=== PATIENT | female | born 1935 | race Caucasian/White ===

== ENCOUNTER → 2017-09-25 | Emergency (ER) | payer MEDICARE, OTHER ==
[~2017-09-25] VITALS: Ht 162.6 cm; Wt 89.4 kg
[~2017-09-25] MED LIST: ACETAMINOPHEN-1 EAC1 PO; ACETAMINOPHEN500 MG PO; AMLODIPINE BESY10 MG PO; ASPIRIN EC81 MG PO; BETAMETHASONE D60 ML TOP; COLACE100 MG PO; DIAZEPAM10 MG PO; DIAZEPAM5 MG PO; FOSAMAX70 MG PO; HYDROXYZINE HCL25 MG PO; HYDROXYZINE PAM25 MG PO; LISINOPRIL10 MG PO; LOSARTAN POTASS25 MG PO; LOVENOX120 MG SUB-Q; NEXIUM20 MG PO; NORCO 5-325 TA1 EACH PO; PREDNISONE20 MG PO; VICODIN 5-3001 EACH PO; WARFARIN SODIUM5 MG PO; ZYRTEC10 MG PO
== END ==
LOC: ED 14:32
DX: L29.9 Pruritus, unspecified (principal)
CPT/HCPCS: 99282

== ENCOUNTER 2017-10-18 11:44 | Emergency (ER) | payer MEDICARE, OTHER ==
[~2017-10-18] VITALS: Ht 162.6 cm; Wt 89.4 kg
[~2017-10-18 11:44] MED LIST changes: -BETAMETHASONE D60 ML TOP; -HYDROXYZINE HCL25 MG PO; -ZYRTEC10 MG PO
--- OUTSIDE RECORDS SUMMARY | 2017-10-18 14:57 | XMS | Clinical Summary ---
Demographics + + + | Address | [address] | | | [place] [address] | + + + | Home Phone | | + + + | Preferred Language | Unknown | + + + | Marital Status | Unknown | + + + | Jehovah'S Witness Affiliation | Unknown | + + + | Race | Unknown | + + + | Ethnic Group | Unknown | + + + Author + + + | Author | [facility] | + + + | Organization | [facility] | + + + | Address | Unknown | + + + | Phone | Unavailable | + + + Support + + +---------+ + | Name | Relationship | Address | Phone | + + +---------+ + | Cheikh Yates II | ECON | Unknown | | + + +---------+ + | Altagracia Yates | ECON | Unknown | | + + +---------+ + Care Team Providers + +------+ + | Care Supervisor Cab Name | Role | Phone | + +------+ + | Ramsey Cardoso DO | PP | | + +------+ + Allergies No Known Allergies Current Medications + + +-------+---------+------+------+-------+ | Prescription | Sig. | Disp. | Refills | Star | End | Statu | | | | | | t | Date | s | | | | | | Date | | | + + +-------+---------+------+------+-------+ | diazepam (VALIUM) | Take 5 mg by mouth | | | | | Activ | | 10 MG tablet | nightly as needed | | | | | e | | | for Anxiety. | | | | | | + + +-------+---------+------+------+-------+ | lisinopril | Take 10 mg by mouth | | | | | Activ | | (ZESTRIL) 10 MG | daily. | | | | | e | | tablet | | | | | | | + + +-------+---------+------+------+-------+ | UNABLE TO FIND | Take 2 capsules by | | | | | Activ | | | mouth 2 (two) times | | | | | e | | | daily as needed. | | | | | | | | NEUROPATHY - VITAMIN | | | | | | | | B1 &B12 R-ALPHA | | | | | | | | LIPOIC ACID | | | | | | + + +-------+---------+------+------+-------+ | warfarin | Take 5 mg by mouth | | | | | Activ | | (COUMADIN) 5 MG | daily. | | | | | e | | tablet | | | | | | | + + +-------+---------+------+------+-------+ | amLODIPine | Take 10 mg by mouth | | | | | Activ | | (NORVASC) 10 MG | daily. | | | | | e | | tablet | | | | | | | + + +-------+---------+------+------+-------+ | esomeprazole | Take 40 mg by mouth | | | | | Activ | | (NEXIUM) 40 MG | every morning before | | | | | e | | capsule | breakfast. | | | | | | + + +-------+---------+------+------+-------+ Active Problems +---------+ + | Problem | Noted Date | +---------+ + | Dyspnea | 11/18/2014 | +---------+ + + + | Last Assessment & Plan: Chronic dyspnea with h/o multiple PE, | | COPD, ex smokerOn anticoagulationO2 sat when in office sitting | | down is 88%Hypoxemia secondary to ?COPD VS CTEPH VS PHTN VS CHF | | Will do echo to evaluate LV function, WMA, valves, PHTN Will do | | baseline VQ scan to evaluate for CTEPHWill do 6 minute walk | | testPFTsWill refer to Pulmonary for further evaluation for need | | for Home O2.Follow up after tests. | |PFTs | |Will refer to Pulmonary for further evaluation for need for Home O2. | |Follow up after tests. | + + + + + | Preop cardiovascular exam | 11/18/2014 | + + + + + | Last Assessment & Plan: 79 yr old female with h/o HTN, HLD, | | ex smoker, Recurrent PE on coumadinChronic dyspnea from multiple | | reasons- possible from COPD, PHTN, CTEPH, obesityPoor functional | | capacity from obesity, back pain, dyspneaHypoxemia secondary to | | ?COPD VS CTEPH VS PHTN VS CHF Will do 2D echo to evaluate LV | | funciton, WMA, valves, PHTNStress MPI to screen for CADWill refer | | to pulmonary for Hypoxemia- home O2- PHTN evaluationFollow up | | after tests. | + + + +---+ | Hypertension | | + +---+ Family History + + +------+ + | Medical History | Relation | Name | Comments | + + +------+ + | Heart attack | Father | | | + + +------+ + | Other (see comments) | Mother | | BLOOD CLOTS | + + +------+ + + +------+ + + | Relation | Name | Status | Comments | + +------+ + + | Brother | | | | + +------+ + + | Father | | | | | | | (Age | | | | | 77) | | + +------+ + + | Mother | | | | + +------+ + + Social History + +-------+ +--------+ + | Tobacco Use | Types | Packs/Day | Years | Date | | | | | Used | | + +-------+ +--------+ + | Former Smoker | | | 20 | Quit: 11/15/1980 | + +-------+ +--------+ + + +---+---+---+ | Smokeless Tobacco: | | | | | Never Used | | | | + +---+---+---+ + + +---------+ + | Alcohol Use | Drinks/We | oz/Week | Comments | | | ek | | | + + +---------+ + | No | | | | + + +---------+ + + + + | Sex Assigned at | Date Recorded | | | | + + + | Not on file | | + + + Last Filed Vital Signs + + + + | Vital Sign | Reading | Time Taken | + + + + | Blood Pressure | 128/60 | 11/18/2014 9:52 AM PDT | + + + + | Pulse | 73 | 11/18/2014 9:52 AM PDT | + + + + | Temperature | - | - | + + + + | Respiratory Rate | 18 | 11/18/2014 9:52 AM PDT | + + + + | Oxygen Saturation | 88% | 11/18/2014 9:52 AM PDT | + + + + | Inhaled Oxygen | - | - | | Concentration | | | + + + + | Weight | 92.1 kg (203 lb) | 11/18/2014 9:52 AM PDT | + + + + | Height | 162.6 cm (5' 4") | 11/18/2014 9:52 AM PDT | + + + + | Body Mass Index | 34.84 | 11/18/2014 9:52 AM PDT | + + + + Plan of Treatment + + + + + | Health Maintenance | Due Date | Last Done | Comments | + + + + + | Vaccine: | | | | | Dtap/Tdap/Td (1 - | 4 | | | | Tdap) | | | | + + + + + | DEXA SCAN SCREENING | | | | | | 0 | | | + + + + + | Vaccine: | | | | | Pneumococcal 65+ | 0 | | | | Low/Medium Risk (1 | | | | | of 2 - PCV13) | | | | + + + + + | Vaccine: Influenza | | | | | (Season Ended) | 8 | | | + + + + + Results Not on filefrom Last 3 Months Insurance + +--------+ +------+-------+ + | Payer | Benefi | Subscriber | Type | Phone | Address | | | t Plan | ID | | | | | | / | | | | | | | Group | | | | | + +--------+ +------+-------+ + | MEDICARE | MEDICA | xxxxxxxxxx | | | [address] | | | RE | | | | [place] [address] | | | IP-OP | | | | | + +--------+ +------+-------+ + | UNITED HEALTHCARE | UNITED | xxxxxxxx | | | | | | | | | | | | | HEALTH | | | | | | | CARE | | | | | | | GENERI | | | | | | | C | | | | | + +--------+ +------+-------+ + + +--------+ +--------+ + + | Guarantor Name | Accoun | Relation to | Date | Phone | Billing Address | | | t Type | Patient | of | | | | | | | | | | + +--------+ +--------+ + + | KAREN TREJO | Person | Self [birth year] Home: | [address] | | | al/Fam | | 1935 | [phone] [place] | | | [place] | | | [phone] | [phone] | + +--------+ +--------+ + +
--- OUTSIDE RECORDS SUMMARY | 2017-10-18 14:57 | XMS | Clinical Summary ---
Demographics + + + | Address | [address] | | | [place] [address] | + + + | Home Phone | | + + + | Preferred Language | Unknown | + + + | Marital Status | Unknown | + + + | Orthodoxy Affiliation | 1009 | + + + | Race | Unknown | + + + | Ethnic Group | Unknown | + + + Author + + + | Author | [facility] | | | and [place] | + + + | Organization | [facility] | | | and [place] | + + + | Address | Unknown | + + + | Phone | Unavailable | + + + Support + + +---------+ + | Name | Relationship | Address | Phone | + + +---------+ + | Kelsey Ramos | ECON | Unknown | | + + +---------+ + | Cheikh Hernandez | ECON | Unknown | | + + +---------+ + | Justino Hernandez | ECON | Unknown | | + + +---------+ + Care Team Providers + +------+ + | Care Merchandise Execution Leader Name | Role | Phone | + [...] | | | | Activ | | (PRINIVIL, ZESTRIL) | Daily. | | | | | e | | 10 mg tablet | | | | | | | + + +-------+---------+------+------+-------+ | amlodipine | Take 10 mg by mouth | | | | | Activ | | (NORVASC) 10 MG | Daily. | | | | | e | | tablet | | | | | | | + + +-------+---------+------+------+-------+ | esomeprazole | Take 40 mg by mouth | | | | | Activ | | (NEXIUM) 40 mg | every morning | | | | | e | | capsule | (before breakfast). | | | | | | + + +-------+---------+------+------+-------+ | warfarin | Take 5 mg by mouth | | | | | Activ | | (COUMADIN) 5 mg | Daily. Mondays and | | | | | e | | tablet | fridays only half a | | | | | | | | pill | | | | | | + + +-------+---------+------+------+-------+ | diazepam (VALIUM) | Take 5 mg by mouth | | | | | Activ | | 5 mg tablet | every 6 hours as | | | | | e | | | needed. | | | | | | + + +-------+---------+------+------+-------+ | acetaminophen | Take 500 mg by mouth | | | | | Activ | | (TYLENOL) 500 mg | every 6 hours as | | | | | e | | tablet | needed. | | | | | | + + +-------+---------+------+------+-------+ | UNABLE TO FIND | Med Name: Neuropathy | | | | | Activ | | | supplement | | | | | e | + + +-------+---------+------+------+-------+ Active Problems + + + | Problem | Noted Date | + + + | Chronic low back pain | 05/05/2014 | + + + | DDD (degenerative disc disease), lumbar-Multilevel especially at | 05/05/2014 | | L4-L5,L5-S1 | | + + + | Facet arthritis of lumbar region (HCC) | 05/05/2014 | + + + | Foraminal stenosis of lumbar [id number]-M7-V9 bilaterally | 05/05/2014 | + + + Family History + + +------+ + | Medical History | Relation | Name | Comments | + + +------+ + | Heart defect | Father | | | + + +------+ + | Heart defect | Mother | | Blood clot in heart. | + + +------+ + | Cancer | Sister | | | + + +------+ + + +------+ + + | Relation | Name | Status | Comments | + +------+ + + | Brother | | | | | | | (Age | | | | | 78) | | + +------+ + + | Father | | | | | | | (Age | | | | | 77) | | + +------+ + + | Mother | | | | | | | (Age | | | | | 68) | | + +------+ + + | Sister | | | stomach cancer | | | | (Age | | | | | 81) | | + +------+ + + | Sister | | | | + +------+ + + Social History + + + +--------+ + | Tobacco Use | Types | Packs/Day | Years | Date | | | | | Used | | + + + +--------+ + | Former Smoker | Cigarettes | 1 | 25 | Started: 07/01/1979 | + + + +--------+ + + + +---------+ + | Alcohol Use | Drinks/We | oz/Week | Comments | | | ek | | | + + +---------+ + | Yes | | | Socially | + + +---------+ + + + + | Sex Assigned at | Date Recorded | | | | + + + | Not on file | | + + + Last Filed Vital Signs + + + + | Vital Sign | Reading | Time Taken | + + + + | Blood Pressure | 171/69 | 06/02/2014 1300 PST | + + + + | Pulse | 78 | 06/02/2014 1300 PST | + + + + | Temperature | - | - | + + + + | Respiratory Rate | - | - | + + + + | Oxygen Saturation | - | - | + + + + | Inhaled Oxygen | - | - | | Concentration | | | + + + + | Weight | 88 kg (194 lb) | 05/05/2014940 PST | + + + + | Height | 162.6 cm (5' 4") | 05/05/2014940 PST | + + + + | Body Mass Index | 33.3 | 05/05/2014940 PST | + + + + Plan of [...] filefrom Last 3 Months Insurance + +--------+ +--------+ +---------+ | Payer | Benefi | Subscriber | Type | Phone | Address | | | t Plan | ID | | | | | | / | | | | | | | Group | | | | | + +--------+ +--------+ +---------+ | MEDICARE | MEDICA | xxxxxxxxxx | Medica | [phone] | | | RE | | re | [phone] | | | | PART A | | | | | | | AND B | | | | | + +--------+ +--------+ +---------+ | GEHA | GEHA | xxxxxxxx | Indemn | [phone] | | | | MDCR | | ity | [phone] | | | | SUPPL | | | | | + +--------+ +--------+ +---------+ + +--------+ +--------+ + + | Guarantor Name | Accoun | Relation to | Date | Phone | Billing Address | | | t Type | Patient | of | | | | | | | | | | + +--------+ +--------+ + + | MIREILLE TREJO | Person | Self [birth year] | Home: | [address] | | | al/Fam | | 1935 | [phone] | [address] [place] | | | [place] | | | [phone] | [phone] | + +--------+ +--------+ + +
--- OUTSIDE RECORDS SUMMARY | 2017-10-18 14:57 | XMS | Clinical Summary ---
Demographics + + + | Address | [address] | | | [place] [address] | + + + | Home Phone | | + + + | Preferred Language | Unknown | + + + | Marital Status | Unknown | + + + | Evangelical Affiliation | 1009 | + + + | Race | Unknown | + + + | Ethnic Group | Unknown | + + + Author + + + | Author | [facility] | | | and [place] | + + + | Organization | [facility] | | | and [place] | [...] Team Providers + +------+ + | Care Orchid Transplanter Name | Role | Phone | + [...] + + | Foraminal stenosis of lumbar ztzqpw-D4-G4 bilaterally | 05/05/2014 | + + + [...] | [place] | | | [phone] | [phone] | + +--------+ +--------+ + +
--- OUTSIDE RECORDS SUMMARY | 2017-10-18 14:57 | XMS | Clinical Summary ---
Demographics + + + | Address | [address] | | | [place] [address] | + + + | Home Phone | | + + + | Preferred Language | Unknown | + + + | Marital Status | Unknown | + + + | Muslim Affiliation | Unknown | + + + | Race | Unknown | + + + | Ethnic Group | Unknown | + + + Author + + + | Author | [facility] | + + + | Organization | [facility] | + + + | Address | [...] Team Providers + +------+ + | Care Fermenter Champagne Name | Role | Phone | + [...] | xxxxxxxxxx | | | [address] | | | RE | | | | [place] [address] | | | IP-OP | | | [...] | [place] | | | [phone] | [phone] | + +--------+ +--------+ + +
[2017-10-18] MEDS ORDERED: HYDROXYZINE HCL25 MG PO (15:18)
[2017-10-18] MEDS ORDERED: PREDNISONE20 MG PO (15:18)
[2017-10-18] MEDS ORDERED: ZYRTEC10 MG PO (15:18)
[2017-10-18] MEDS ORDERED: BETAMETHASONE D60 ML TOP (15:18)
== END 2017-10-18 15:40 | disposition home or self-care (01) ==
LOC: ED 11:44
DX: L23.9 Allergic contact dermatitis, unspecified cause (principal); I10 Essential (primary) hypertension; K21.9 Gastro-esophageal reflux disease without esophagitis; Z79.01 Long term (current) use of anticoagulants; Z79.899 Other long term (current) drug therapy
CPT/HCPCS: 96372; 99283; J2930